=== PATIENT | male | born 1960 | race Caucasian/White ===

== ENCOUNTER 2023-09-24 09:50 | Emergency (ER) | payer MEDICARE, MEDICAID ==
[~2023-09-24] VITALS: Ht 180.3 cm; Wt 100.0 kg
[2023-09-24 10:08] VITALS: TEMP 98.4
[2023-09-24] MEDS ORDERED: CLOT15CR75 TP (14:21)
[2023-09-24 14:58] VITALS: BP 136/84; PULSE 101; RESP 18
== END 2023-09-24 15:11 | disposition home or self-care (01) ==
LOC: EMS 09:50
DX: B35.6 Tinea cruris (principal); A64 Unspecified sexually transmitted disease
CPT/HCPCS: 87491; 87591; 99282; 99283